=== PATIENT | male | born 1970 | race Caucasian/White ===

== ENCOUNTER 2020-04-18 12:55 | Emergency (ER) | payer OTHER ==
[~2020-04-18] VITALS: Ht 177.8 cm; Wt 66.2 kg
[~2020-04-18 12:55] MED LIST: IBUPROFEN 600600 M1 PO; NOHOMEMEDICATIONS
[2020-04-18] MEDS ORDERED: REVIA 50 MG TAB50 MG PO (13:15)
[2020-04-18] MEDS ORDERED: NEURONTIN 300M300 M2 PO (13:15)
[2020-04-18] MEDS ORDERED: LEVETIRACETAM500 M1 PO (13:15)
[2020-04-18] MEDS ORDERED: ZOLOFT50 M1 PO (13:16)
[2020-04-18 14:57] LABS: ABSOLUTE LYMPHOCYTES 0.5 thou/uL (0.8-5.3); ABSOLUTE MONOCYTES 0.7 thou/uL (0.0-1.2); ABSOLUTE NEUTROPHILS 6.3 thou/uL (1.6-8.1); BASOPHILS 0.3 %; EOSINOPHILS 0.1 %; HEMATOCRIT 35.1 % (42.0-52.0); HEMOGLOBIN 12.1 gm/dL (14.0-18.0); LYMPHOCYTES 7.3 %; MCH 38.5 pg (26.0-34.0); MCHC 34.6 g/dL (28.0-37.0); MCV 111.3 fL (80.0-100.0); MONOCYTES 8.8 %; MPV 6.7 fl. (7.2-11.1); NUCLEATED RBCS 0 /100WBC; PLATELET COUNT* 176 thou/uL (150-400); POLYS 83.5 %; RBC 3.15 mil/uL (4.50-6.00); RDW-CV 14.6 % (10.5-14.5); WBC 7.5 thou/uL (4.0-11.0)
[2020-04-18 15:03] LABS: CALCIUM 8.3 mg/dL (8.5-10.1); CREATININE 0.8 mg/dL (0.6-1.3); POTASSIUM 3.1 mmol/L (3.5-5.1)
[2020-04-18 15:08] LABS: ALBUMIN 3.3 g/dL (3.4-5.0); TOTAL BILIRUBIN 0.7 mg/dL (<0.1-1.0); TOTAL PROTEIN 7.3 g/dL (6.4-8.2)
[2020-04-18] MEDS ORDERED: NORCO 5-325 TA1 EAC2 PO (15:47)
[2020-04-18 15:59] VITALS: BP 151/95
== END 2020-04-18 16:00 | disposition home or self-care (01) ==
LOC: M.ERS 12:55
PROVIDERS: Family Medicine
DX: S02.2XXA Fracture of nasal bones, initial encounter for closed fracture (principal); S01.21XA Laceration without foreign body of nose, initial encounter; M25.532 Pain in left wrist; R56.9 Unspecified convulsions; X58.XXXA Exposure to other specified factors, initial encounter; Y93.89 Activity, other specified; Y92.89 Other specified places as the place of occurrence of the external cause; Y99.8 Other external cause status